=== PATIENT | female | born 1950 | race Hispanic/Latino ===

== ENCOUNTER 2017-08-16 18:26 | Emergency (ER) | payer MEDICAID ==
[2017-08-16] MEDS ORDERED: ACETAMINOPHEN-CODEINE 300/30MG TAB ONE (19:16)
== END 2017-08-16 20:29 | disposition home or self-care (01) ==
LOC: EDH 18:26
DX: S52.591A Other fractures of lower end of right radius, initial encounter for closed fracture (principal); S52.691A Other fracture of lower end of right ulna, initial encounter for closed fracture; E11.9 Type 2 diabetes mellitus without complications; I10 Essential (primary) hypertension; W18.39XA Other fall on same level, initial encounter; Y93.01 Activity, walking, marching and hiking; Y92.89 Other specified places as the place of occurrence of the external cause; Y99.8 Other external cause status
CPT/HCPCS: 29125; 73110

== ENCOUNTER 2018-04-23 14:42 | Emergency (ER) | payer MEDICARE ==
[~2018-04-23 14:42] MED LIST: BENZ-17 PO; LOSA50TA64 PO; MECL-111 PO
== END 2018-04-23 15:19 | disposition home or self-care (01) ==
LOC: EDH 14:42
DX: K94.29 Other complications of gastrostomy (principal); E11.9 Type 2 diabetes mellitus without complications; I10 Essential (primary) hypertension
CPT/HCPCS: 99281